=== PATIENT | female | born 1970 | race Caucasian/White ===

== ENCOUNTER 2016-10-28 15:35 | Emergency (ER) | payer OTHER | END 2016-10-28 16:27 | disposition home or self-care (01) | LOC: ER 15:35 | DX: J06.9 Acute upper respiratory infection, unspecified (principal); R11.10 Vomiting, unspecified; F32.9 Major depressive disorder, single episode, unspecified; F17.210 Nicotine dependence, cigarettes, uncomplicated; Z98.51 Tubal ligation status; Z79.899 Other long term (current) drug therapy; Z88.2 Allergy status to sulfonamides; Z88.8 Allergy status to other drugs, medicaments and biological substances | CPT/HCPCS: 87502; 87651 ==